=== PATIENT | female | born 1955 | race Caucasian/White ===

== ENCOUNTER 2021-08-26 13:14 | Outpatient (CLI) | payer MEDICARE, SELFPAY ==
--- NOTE | 2021-08-26 13:58 | XR_ITS ---
WS: [id number] DEXA (DUAL ENERGY X-RAY ABSORPTIOMETRY) Bone mineral density was performed using a Pin digital machine. HISTORY: SCREENING FOR OSTEOPOROSIS COMPARISON: None available. Lumbar spine BMD (L1-L4): 1.038 g/cm2 T score: -1.2 Z score: 0.5 Total hip BMD: Left: 0.842 g/cm2. T score: -1.3 Z score: 0.0 Right: 0.834 g/cm2. T score: -1.4 Z score: -0.1 10 year probability of a major osteoporotic fracture is 35%. XR/XR DEXA axial skeleton* [id number] IMPRESSION: OSTEOPENIA based upon the WHO classification for females.
== END 2021-08-26 13:15 | disposition home or self-care (01) ==
PROVIDERS: Visit Provider Clinical Nurse Specialist Adult Health
DX: Z13.820 Encounter for screening for osteoporosis (principal); M85.80 Other specified disorders of bone density and structure, unspecified site
CPT/HCPCS: 77080

== ENCOUNTER 2021-08-30 08:09 | Outpatient (CLI) | payer MEDICARE, SELFPAY ==
[2021-08-30 09:01] LABS: Alanine Aminotransferase 16 U/L (0-33); Albumin Level 4.1 g/dL (3.5-5.2); Alkaline Phosphatase 66 IU/L (35-105); Anion Gap 11.3 (5-19); Aspartate Amino Transferase 24 U/L (0-32); Blood Urea Nitrogen 17 mg/dL (8-23); Carbon Dioxide 30 mmol/L (22-29); Chloride 106 mmol/L (98-107); Globulin 2.8 g/dL (1.3-4.6); Glomerular Filtration Rate 100.3 mL/min (90-130); Glucose 78 mg/dL (65-115); Osmolality Calculated 296 mOsm/kg (285-295); Potassium 4.3 mmol/L (3.5-5.1); Sodium 143 mmol/L (136-145); Total Bilirubin 0.3 mg/dL (0.15-1.2); Total Protein 6.9 g/dL (6.6-8.7)
[2021-08-30 09:34] LABS: 25 Hydroxy Vitamin D > 100 ng/mL (30-100)
== END 2021-08-30 08:10 | disposition home or self-care (01) ==
LOC: LAB 08:14
PROVIDERS: Visit Provider Clinical Nurse Specialist Adult Health
DX: M85.80 Other specified disorders of bone density and structure, unspecified site (principal)
CPT/HCPCS: 36415; 80053; 82306

== ENCOUNTER → 2021-09-17 10:08 | Outpatient (BNVA) | payer MEDICARE, SELFPAY | PROVIDERS: PCP Clinical Nurse Specialist Adult Health; Visit Provider Otolaryngology | DX: R42 Dizziness and giddiness (principal); R26.81 Unsteadiness on feet; H91.91 Unspecified hearing loss, right ear; H93.11 Tinnitus, right ear; M26.623 Arthralgia of bilateral temporomandibular joint | CPT/HCPCS: 99203; 99204 ==

== ENCOUNTER → 2022-02-05 14:13 | Outpatient (BNVA) | payer MEDICARE, SELFPAY | PROVIDERS: PCP Clinical Nurse Specialist Adult Health; Visit Provider Clinical Nurse Specialist Adult Health | DX: E03.9 Hypothyroidism, unspecified (principal) | CPT/HCPCS: 84436; 84443; 84481 ==

== ENCOUNTER 2022-10-13 14:49 | Outpatient (CLI) | payer MEDICARE, SELFPAY ==
--- NOTE | 2022-10-13 15:02 | MM_ITS ---
WS: [id number] BILATERAL 3D TOMOSYNTHESIS DIGITAL SCREENING MAMMOGRAPHY WITH CAD CLINICAL INFORMATION: SCREENING HISTORY: Screening mammogram. No current complaints. COMPARISON: 2019 TECHNIQUE: Bilateral CC and MLO views. FINDINGS: Scattered fibroglandular densities bilaterally. No suspicious focal mass, asymmetry, calcifications, or architectural distortion. No evidence of malignancy. Vascular calcification. A few incidental punc bullard calcifications. MM/[place] [id number] IMPRESSION: BI-RADS: 2-Benign FOLLOW UP: 1 Year Follow-up Recommend return to annual screening mammography.
== END 2022-10-13 14:50 | disposition home or self-care (01) ==
PROVIDERS: PCP Nurse Practitioner; Visit Provider Nurse Practitioner
DX: Z12.31 Encounter for screening mammogram for malignant neoplasm of breast (principal)
CPT/HCPCS: 77063; 77067